=== PATIENT | male | born 1985 | race Caucasian/White ===

== ENCOUNTER 2017-01-24 22:43 | Emergency (ER) | payer SELFPAY ==
[2017-01-24 22:50] VITALS: BP 133/89
--- NOTE | 2017-01-24 22:56 | EDM.PDOC ---
ED UPPER BACK/NECK PAIN/INJURY - General Chief Complaint: Back Pain or Injury Stated Complaint: MID BACK PAIN Time Seen by Provider: 01/24/17 22:56 Source of Information: Reports: Patient History Limitations: Reports: No limitations - History of Present Illness INITIAL COMMENTS - FREE TEXT/NARRATIVE: 31-year-old male presents the ED with diffuse right mid low back pain. Patient reports no specific known injuries. He did sleep rather hard last night awoke with pain early this morning. Constant boring pain that will not allow him to rest or sleep. It is worsened by deep breathing and certain movements. Feels like her radiates along the back along his costal margin. 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 Symptom Onset Date: 01/24/17 (Awoke with pain in his left back yesterday morning.) Timing/Duration: Reports: Hour(s):, Sudden onset Location: Reports: lower (Lower mid back), midline, paraspinal Quality: Reports: Ache, Burning, Dull, Pressure, Throbbing Severity: severe Place of Occurrence: other (Unsure as he woke up with pain.) Improves with: Reports: None Worsens with: Reports: None Context: Reports: lifting. Denies: chronic pain/injury, sports injury Associated Symptoms: Reports: Shortness of breath. Denies: Chest pain, Constipation, Cough, Loss of appetite, Rash, Seizure, Syncope, Weakness Treatments ELEMENT SETTER: Reports: Other (see below) (Can take a deep breath as it makes the pain in his back worse.) - Related Data Allergies/ADRs: Allergies Allergy/AdvReac Type Severity Reaction Status Date / Time acetaminophen [From Vicodin] Allergy Other Verified 01/24/17 22:51 hydrocodone [From Vicodin] Allergy Other Verified 01/24/17 22:51 baby aspirin Allergy Hives Uncoded 01/24/17 22:51 Home Meds: Home Meds Ondansetron [Zofran ODT] 4 mg PO Q6H #5 tab.dis 01/24/17 [Rx] oxyCODONE HCl/Acetaminophen [Percocet 5-325 mg Tablet] 1 - 2 each PO Q4H PRN # 20 tablet 01/24/17 [Rx] oxyCODONE HCl/Acetaminophen [Percocet 5-325 mg Tablet] 1 - 2 each PO Q4H PRN #5 tablet 01/24/17 [Rx] Past Medical History - Past Health History Medical/Surgical History: Denies Medical/Surgical History Social & Family History - Family History Family Medical History: Noncontributory - Tobacco Use Smoking Status *Q: Current Every Day Smoker Years of Tobacco use: 5 Packs/Tins Daily: 0.5 - Caffeine Use Caffeine Use: Reports: Soda - Recreational Drug Use Recreational Drug Use: No - Living Situation & Occupation Occupation: employed ED ROS GENERAL - Review of Systems Review Of Systems: See Below Constitutional: Reports: no symptoms HEENT: Reports: No symptoms Respiratory: Reports: No Symptoms Cardiovascular: Reports: No symptoms Endocrine: Reports: no symptoms GI/Abdominal: Reports: No symptoms : Reports: no symptoms Musculoskeletal: Reports: back pain (Right mid lower back pain) Skin: Reports: no symptoms Neurological: Reports: No Symptoms Psychiatric: Reports: No symptoms Hematologic/Lymphatic: Reports: no symptoms ED EXAM, UPPER BACK/NECK PAIN - Physical Exam Exam: See Below Exam Limited By: No limitations General Appearance: alert, WD/WN, mild distress Head Exam: atraumatic, normocephalic Neck Exam: non-tender, full range of motion, normal alignment, normal inspection. No: muscle spasm Cardiovascular/Respiratory: regular rate, rhythm, no M/R/G, tachycardia ( Resting tachycardia of 113 per minute due to pain.) GI/Abdominal: normal bowel sounds, soft, non tender, no organomegaly, no distention, other (Particularly no pain in the right upper quadrant. Negative Ambrose's sign) Back Exam: muscle spasm (Right back from thoracic 7 to lumbar one. Maximal point of tenderness appears to be read bad at T10-T11 area on the right side.) Extremities: normal inspection, normal range of motion, non-tender, normal capillary refill Neurologic: no motor/sensory deficits ( Source of suspect reduce subluxation in this area.), alert, normal mood/affect, oriented x 3 Psychiatric: normal affect Skin Exam: Normal color Lymphatic: no adenopathy Course - Vital Signs Last Recorded V/S: Last Vital Signs Temp 37.2 C 01/24/17 22:48 Pulse 113 H 01/24/17 22:48 Resp 18 01/24/17 22:48 BP 133/89 01/24/17 22:48 Pulse Ox 100 01/24/17 22:48 - Orders/Labs/Meds Meds: Medications Discontinued Medications Generic Name Dose Route Start Last Admin Trade Name Freq PRN Reason Stop Dose Admin Ibuprofen 800 mg 01/24/17 23:47 01/24/17 23:59 Motrin PO 01/24/17 23:48 800 mg ONETIME ONE Administration Prednisone 30 mg 01/24/17 23:46 01/25/17 00:00 Prednisone PO 01/24/17 23:47 30 mg ONETIME ONE Administration - Radiology Interpretation Free Text/Narrative:: 31-year-old male presents the ED with acute onset of right mid low back pain since awakening yesterday morning. Examination reveals marked paraspinal muscle spasm from thoracic 7 to lumbar one on the right side. Maximal point of tendernesses is T10- T-11 rib heads . Clinically and subluxation in this area. Patient advise follow up with chiropractor when he is able to next week. In the meantime I did place him on Percocet tabs 5-3 he'll continue with Motrin 800 mg every 6-8 hours for pain relief at home. 25 one or 2 every 4-6 hours as needed for pain relief. Since it isn't tender he will not take them until he gets home. He was given prednisone 30 mg orally here with Motrin 800 mg by mouth here for pain relief. Departure - Departure Time of Disposition: 23:52 Disposition: Home, Self-Care 01 Condition: fair Clinical Impression: Upper back pain on right side Prescriptions: Ondansetron [Zofran ODT] 4 mg PO Q6H #5 tab.dis oxyCODONE HCl/Acetaminophen [Percocet 5-325 mg Tablet] 1 - 2 each PO Q4H PRN #5 tablet PRN Reason: pain relief. oxyCODONE HCl/Acetaminophen [Percocet 5-325 mg Tablet] 1 - 2 each PO Q4H PRN # 20 tablet PRN Reason: pain relief. Instructions: Back Pain, Adult Referrals: PCP,None [Primary Care Provider] - Forms: ED Department Discharge Additional Instructions: Evaluation in the emergency room today in regards to acute onset of right mid lower back pain. No specific injury. However it could well be work related with the type of work that you do. Examination reveals marked muscle spasm along the spine on the right side from thoracic 7 to thoracic 12. Point tenderness over the 10th and 11th rib heads on the left side suggesting a prevent subluxation has occurred. Treatment is anti-inflammatory such as Motrin 800 mg every 6 hours to relieve pain and inflammation. Percocet tabs 5-325 one or 2 every 4-6 hours for pain relief not relieved by Motrin alone and when not driving or operating motor vehicle. He should be taken with food in the stomach. I did send along with you Zofran tablets if you do develop nausea from the pain medicine one tablet under the tongue usually takes away within 10-15 minutes. Suggest followup with a chiropractor early next week to have the rib bed adjusted and the packing in place.
[2017-01-24] MEDS ORDERED: predniSONE 20 MG Tab PO ONE (23:46)
[2017-01-24] MEDS ORDERED: Ibuprofen 800 MG Tab PO ONE (23:47)
[2017-01-24] MEDS ORDERED: Acetaminophen/oxyCODONE 325-5 MG Tab ONE (23:55)
== END 2017-01-25 00:15 | disposition home or self-care (01) ==
LOC: JD.ED 22:43
DX: M54.6 Pain in thoracic spine (principal); F17.210 Nicotine dependence, cigarettes, uncomplicated; Z88.6 Allergy status to analgesic agent; Z88.5 Allergy status to narcotic agent
CPT/HCPCS: 99283; A9270

== ENCOUNTER 2017-02-06 22:43 | Emergency (ER) | payer SELFPAY ==
[2017-02-06] MEDS ORDERED: Sodium Chloride 0.9% 500 ML IV ONE (23:03)
[2017-02-06] MEDS: Naloxone 2 MG/2 ML Syringe ONE ×2 (23:15→23:18)
[2017-02-06 23:58] LABS: ACETAMINOPHEN 0 ug/mL (10-30)
[2017-02-07] MEDS ORDERED: Sodium Chloride 0.9% 1,000 ML IV ONE (00:40)
--- NOTE | 2017-02-07 01:54 | EDM.PDOC ---
ED [facility] Behavioral Health - General Chief Complaint: Drug or Alcohol Abuse Stated Complaint: [facility] Time Seen by Provider: 02/06/17 22:47 Source of Information: Reports: Patient, EMS, RN notes reviewed Exam Limitations: Reports: Altered mental status - History of Present Illness INITIAL COMMENTS - FREE TEXT/NARRATIVE: The patient states that he injected about 1/4 point (25 mg) of "[place]" [place] (from [place] in a friend's bathroom. He does not know what time it was that he injected. Per EMS, the patient was found unconscious, and remained that way for about 10 minutes. He was revived by EMS after being given 2 mg of Narcan. The patient states that he usually injects methamphetamine, and he has only used heroin a few times, the first several years ago. He has abused OxyContin/ oxycodone in the past. He states that he injects about 1 g of methamphetamine per day, most recently about a week ago. He smokes marijuana on occasion. He drinks alcohol socially , but he does not believe he drank any tonight. The patient states that he was in inpatient drug treatment for 90 days, followed by a 90 day outpatient treatment, in 2014. He states that he remained clean for about 18 months afterwards. The patient does not have a PCP. - Related Data Allergies Allergy/AdvReac Type Severity Reaction Status Date / Time acetaminophen [From Vicodin] Allergy Other Verified 01/24/17 22:51 hydrocodone [From Vicodin] Allergy Other Verified 01/24/17 22:51 baby aspirin Allergy Hives Uncoded 01/24/17 22:51 Home Medications: Home Meds Ondansetron [Zofran ODT] 4 mg PO Q6H #5 tab.dis 01/24/17 [Rx] oxyCODONE HCl/Acetaminophen [Percocet 5-325 mg Tablet] 1 - 2 each PO Q4H PRN # 20 tablet 01/24/17 [Rx] oxyCODONE HCl/Acetaminophen [Percocet 5-325 mg Tablet] 1 - 2 each PO Q4H PRN #5 tablet 01/24/17 [Rx] Past Medical History Psychiatric History: Reports: Addiction (as per the HPI) Social & Family History - Family History Family Medical History: Noncontributory - Tobacco Use Smoking Status *Q: Current Every Day Smoker Years of Tobacco use: 15 Packs/Tins Daily: 0.3 - Caffeine Use Caffeine Use: Reports: Soda - Alcohol Use Alcohol Use History: Yes Alcohol Use Frequency: Socially - Recreational Drug Use Recreational Drug Use: Yes Drug Use in Last 12 Months: Yes Recreational Drug Type: Reports: Cocaine, Dilaudid, Heroin, Marijuana/Hashish, Methamphetamine, Oxycodone, Vicodin, Xanax - Living Situation & Occupation Living situation: Reports: single, other (Homeless) Occupation: unemployed ED ROS GENERAL - Review of Systems Review Of Systems: See Below Constitutional: Reports: no symptoms HEENT: Reports: No symptoms Respiratory: Reports: No Symptoms Cardiovascular: Reports: No symptoms Endocrine: Reports: no symptoms GI/Abdominal: Reports: No symptoms : Reports: no symptoms Musculoskeletal: Reports: no symptoms Skin: Reports: no symptoms Neurological: Reports: No Symptoms Psychiatric: Reports: No symptoms Hematologic/Lymphatic: Reports: no symptoms Immunologic: Reports: no symptoms ED EXAM, BEHAVIORAL HEALTH - Physical Exam Exam: See Below Exam Limited By: No limitations (lethargic) General Appearance: alert, WD/WN, no apparent distress, lethargic Eye Exam: bilateral eye: EOMI, normal inspection Ears: normal external exam, hearing grossly normal Nose: normal inspection, no blood Throat/Mouth: Normal inspection, Normal lips, Normal voice, No airway compromise Head: atraumatic, normocephalic Neck: normal inspection, full range of motion Respiratory/Chest: no respiratory distress, lungs clear, normal breath sounds, no accessory muscle use Cardiovascular: normal peripheral pulses, regular rate, rhythm, no gallop, no JVD, no murmur, no rub GI/Abdominal: normal bowel sounds, soft, non tender, no organomegaly, no distention, no abnormal bruit, no mass (Male) Exam: Deferred Rectal (Males) Exam: Deferred Back Exam: normal inspection, full range of motion, NT Extremities: normal inspection, normal range of motion, no pedal edema, normal capillary refill Neurological: alert, no motor/sensory deficits, oriented x 3 Psychiatric: normal affect Skin Exam: Warm, Dry, Intact, Normal color, No rash COURSE, BEHAVIORAL HEALTH COMP - Course Vital Signs: Last Vital Signs Temp 35.8 C 02/06/17 22:49 Pulse 72 02/07/17 03:51 Resp 18 02/07/17 01:53 BP 128/87 02/07/17 01:53 Pulse Ox 95 02/07/17 03:51 Orders, Labs, Meds: Active Orders 24 hr Category Date Time Status Accu Check [Blood Glucose Check, Bedside] [] ONETIME Care 02/06/17 23:02 Active Accu Check [Blood Glucose Check, Bedside] [RC] ONETIME Care 02/07/17 02:52 Active DRUG SCREEN, URINE [URCHEM] Stat Lab 02/06/17 23:03 Uncollected Laboratory Tests 02/06/17 02/06/17 02/07/17 Range/Units 23:15 23:15 03:49 WBC 9.32 H (4.23-9.07) K/mm3 RBC 5.65 (4.63-6.08) M/mm3 Hgb 16.0 (13.7-17.5) gm/L Hct 46.2 (40.1-51.0) % MCV 81.8 (79.0-92.2) fl MCH 28.3 (25.7-32.2) pg MCHC 34.6 (32.2-35.5) g/dl RDW Std Deviation 39.2 (35.1-43.9) fL Plt Count 411 H (163-337) K/mm3 MPV 9.3 L (9.4-12.3) fl Neutrophils % (Manual) 89 H (40-60) % Band Neutrophils % 1 (0-10) % Lymphocytes % (Manual) 8 L (20-40) % Atypical Lymphs % 0 % Monocytes % (Manual) 1 L (2-10) % Eosinophils % (Manual) 0 L (0.8-7.0) % Basophils % (Manual) 1 (0.2-1.2) Platelet Estimate Adequate RBC Morph Comment Normal Sodium 142 (136-145) mEq/L Potassium 4.0 (3.5-5.1) mEq/L Chloride 104 (98-107) mEq/L Carbon Dioxide 22 (21-32) mEq/L Anion Gap 20.0 H (5-15) BUN 22 H (7-18) mg/dL Creatinine 1.7 H (0.7-1.3) mg/dL Est Cr Clr Drug Dosing TNP Estimated GFR (MDRD) 48 (>60) mL/min BUN/Creatinine Ratio 12.9 L (14-18) Glucose 218 H (74-106) mg/dL POC Glucose 95 (70-105) mg/dL Calcium 8.9 (8.5-10.1) mg/dL Total Bilirubin 0.5 (0.2-1.0) mg/dL AST 54 H (15-37) U/L ALT 55 (16-63) U/L Alkaline Phosphatase 99 (46-116) U/L Creatine Kinase 252 (39-308) U/L Total Protein 8.0 (6.4-8.2) g/dl Albumin 4.2 (3.4-5.0) g/dl Globulin 3.8 gm/dL Albumin/Globulin Ratio 1.1 (1-2) Acetaminophen 0 L (10-30) ug/mL Medications Discontinued Medications Generic Name Dose Route Start Last Admin Trade Name Freq PRN Reason Stop Dose Admin Sodium Chloride 500 mls @ 1,000 mls/hr 02/06/17 23:03 02/06/17 23:13 Normal Saline IV 02/06/17 23:32 1,000 mls/hr .BOLUS ONE Administration Sodium Chloride 1,000 mls @ 999 mls/hr 02/07/17 00:40 02/07/17 00:56 Normal Saline IV 02/07/17 01:40 999 mls/hr ONETIME ONE Administration Naloxone HCl 1 mg 02/06/17 23:03 02/06/17 23:17 Narcan IVPUSH 02/06/17 23:04 1 mg ONETIME ONE Administration Naloxone HCl Confirm 02/06/17 23:11 02/06/17 23:18 Narcan Administered 02/06/17 23:12 Not Given Dose [address] [facility] Medical Clearance: 02/07/17 04:26 The patient has remained hemodynamically stable with excellent oxygen saturation. He is no longer at risk for respiratory depression. He did not provide us a urine sample, which I ordered to see if his mental status changes might be due to drugs other than heroin, however, at this point it is no longer needed. I believe he may be safely discharged. Departure - Departure Time of Disposition: 04:27 Disposition: Home, Self-Care 01 Condition: good Clinical Impression: Accidental heroin overdose, Polysubstance abuse, Renal insufficiency Referrals: PCP,None [Primary Care Provider] - Shazia Fuentes PA-C [Physician Whipped Topping Mixer] - Additional Instructions: You were seen in the emergency room after falling unconscious after injecting heroin. Workup in the ER included blood work. You did not provide a urine sample for us. Your blood work showed some stress to your kidneys, and, initially, an elevated blood sugar, it was likely stress related. He received IV fluid, to help hydrate your kidneys. A repeat blood sugar check was normal. Your blood pressure and oxygen levels have remained normal, therefore it is safe to discharge you home. We STRONGLY recommend you seek professional help for your drug abuse. If any other problems, please do not hesitate to return to the ER. - My Orders Last 24 Hours: My Active Orders 02/06/17 23:02 Accu Check [Blood Glucose Check, Bedside] [RC] ONETIME 02/06/17 23:03 DRUG SCREEN, URINE [URCHEM] Stat 02/07/17 02:52 Accu Check [Blood Glucose Check, Bedside] [RC] ONETIME - Assessment/Plan Last 24 Hours: My Active Orders 02/06/17 23:02 Accu Check [Blood Glucose Check, Bedside] [RC] ONETIME 02/06/17 23:03 DRUG SCREEN, URINE [URCHEM] Stat 02/07/17 02:52 Accu Check [Blood Glucose Check, Bedside] [RC] ONETIME
[2017-02-07 09:41] VITALS: BP 118/95
== END 2017-02-07 09:36 | disposition home or self-care (01) ==
LOC: JD.ED 22:43
DX: T40.1X1A Poisoning by heroin, accidental (unintentional), initial encounter (principal); R41.82 Altered mental status, unspecified; N28.9 Disorder of kidney and ureter, unspecified; F19.10 Other psychoactive substance abuse, uncomplicated; F17.200 Nicotine dependence, unspecified, uncomplicated; Z88.6 Allergy status to analgesic agent
CPT/HCPCS: 36415; 80053; 80306; 82550; 82962; 85025; 96361; 96374; 99285; G0480; J2310; J7040; 99284